=== PATIENT | female | born 1950 | race Caucasian/White ===

== ENCOUNTER 2017-01-20 09:47 | Emergency (ER) | payer MEDICARE, OTHER ==
[2017-01-20] MEDS ORDERED: NS 0.9% 1000 ML* 1,000 ML IV SCH (10:15)
[2017-01-20 10:48] LABS: Hematocrit 33 % (35-47); Hemoglobin 11.1 g/dl (12.0-16.0); Mean Corpuscular HGB Conc 34 g/dl (31-36); Mean Corpuscular Hemoglobin 31 pg (27-31); Mean Corpuscular Volume 93 fL (80-97); Mean Platelet Volume 8 um3 (7.4-10.4); Red Blood Count 3.56 10^6/ul (4.0-5.4); Red Cell Distribution Width 16 % (10.5-15); White Blood Count 1.9 10^3/ul (3.5-10.8)
[2017-01-20] MEDS ORDERED: Ondansetron INJ* 2 MG/ML VIAL IV ONE (10:54)
[2017-01-20] MEDS ORDERED: NS 0.9% 1000 ML* 1,000 ML IV ONE (10:54)
[2017-01-20 11:00] LABS: Albumin 3.4 g/dL (3.2-5.2); BUN/Creatinine Ratio 18.2 (8-20); C Reactive Protein 122.62 mg/L (< 5.00); Calcium 8.7 mg/dL (8.6-10.3); EGFR African American 96.2 (>60); EGFR Non-African American 74.8 (>60); Globulin 2.7 g/dL (2-4); Potassium 3.5 mmol/L (3.5-5.0); Total Bilirubin 0.6 mg/dL (0.2-1.0); Total Protein 6.1 g/dL (6.4-8.9); Troponin I 0.03 ng/mL (<0.04)
[2017-01-20 11:01] LABS: Comments Flag Yes
[2017-01-20 11:02] LABS: Add Diff/Slide Review? Slide Review Added
[2017-01-20] MEDS ORDERED: Iohexol 300* (CONTRAST) 10 ML SDV IV ONE (13:47)
[2017-01-20 14:10] LABS: Urine Bacteria Absent (Absent); Urine Bilirubin Negative (Negative); Urine Glucose Negative (Negative); Urine Nitrite Negative (Negative)
--- NOTE | 2017-01-20 14:28 | RAD ---
INDICATION: Abdominal pain. History of small bowel obstruction. Colostomy. Fallopian tube cancer. COMPARISON: None TECHNIQUE: Axial source images were obtained from the hemidiaphragms to the symphysis pubis following administration of oral and intravenous contrast. 80 mL Omnipaque 300 was utilized. Coronal and sagittal reconstructed images were acquired. Lung bases: The lung bases are clear. Liver: There are numerous water density hepatic lesions measuring up to 3.4 cm. These involve the right and left hepatic lobes. The smaller lesions cannot be fully characterize but are likely cysts or hemangiomas. Suggest correlate with any prior imaging in this patient with a history of fallopian tube carcinoma.. Gallbladder: There are no calcified gallstones. There is no evidence of wall thickening or pericholecystic fluid. Spleen: The spleen is normal in size. There are no masses. Pancreas: There is no focal pancreatic mass or ductal dilatation. Adrenal glands: There is no evidence of adrenal mass. Kidneys: The kidneys are normal in size and position. There are prompt nephrograms and there is prompt excretion bilaterally. There are no renal parenchymal masses. There is no evidence of nephrolithiasis. Adenopathy: There is no evidence of adenopathy by size criteria. Fluid collections: There are no free or localized fluid collections. Vessels:There are no significant atherosclerotic changes involving the aorta. There is no focal aneurysm. The iliac vessels are normal in caliber. The IVC appears normal. GI tract: There is limited oral contrast opacification. The stomach contains oral contrast and there is contrast in ileal loops. There is no contrast within the colon. No specific abnormalities the upper GI tract are seen. There is moderate stool throughout the colon with colonic redundancy. There is a a stoma in the left lower quadrant there are surgical clips at the level the rectum Pelvic organs: There is presumed hysterectomy. There is no adnexal mass. Bladder: There are no bladder masses. Abdominal and pelvic soft tissues: The extraperitoneal abdominal and pelvic soft tissues appear normal.. Osseous structures: There are no acute osseous findings. Other: None IMPRESSION: 1. Numerous low-density hepatic lesions are likely hepatic cysts but this examination should be correlated with prior imaging studies. 2. Stoma left lower quadrant. 3. Moderate stool. No obstruction.
--- NOTE | 2017-01-20 15:00 | ED ---
Alejandra Drake Thomas, scribed for Francisco Cifuentes MD on 01/20/17 at 1024 . Abdominal Pain/Female - HPI Summary HPI Summary: The pt is a 66 y/o F presenting to the ED c/o lower abd pain that began 4 days ago. Her pain spikes to 6/10 from a baseline of 2/10. The pain improved from 3- 4 days ago but worsened yesterday. She additionally c/o nausea, vomiting, and no passage of stool into her colostomy bag. She denies bloody stool. The pt had a chemotherapy appointment 7 days ago. The pt has had multiple SBO in the past. The pt had a SBO in November that was confirmed on CT imaging. She states that in the past her SBO episodes are typically resolved with dietary changes. PSHx: tumor surgery and resection of bowel, colostomy, Port-a-cath. - History of Current Complaint Chief Complaint: EDAbdPain Stated Complaint: ABD PAIN, VOMITING, HY OF CANCER Time Seen by Provider: 01/20/17 10:13 Hx Obtained From: Patient Onset/Duration: Lasting Days - 4 days, Still Present Pain Intensity: 6 Pain Scale Used: 0-10 Numeric Location: Diffuse - lower Aggravating Factor(s): Nothing Alleviating Factor(s): Nothing Associated Signs and Symptoms: Positive: Nausea, Vomiting, Other: - POS: no passage of stool into colostomy bag. Negative: Blood in Stool Allergies/Adverse Reactions: Allergies Allergy/AdvReac Type Severity Reaction Status Date / Time Codeine Allergy Nausea And Verified 01/20/17 13:42 Vomiting Penicillins [PCN] Allergy Rash Verified 01/20/17 13:42 Sulfa Antibiotics Allergy Rash Verified 01/20/17 13:42 PMH/Surg Hx/FS Hx/Imm Hx Previously Healthy: No - Cancer History Cancer Type, Location and Year: [place] - Surgical History Surgery Procedure, Year, and Place: Colostomy, tumor excision and bowel resection, Port-a-cath Infectious Disease History: No Infectious Disease History: Denies: Traveled Outside the [place] in Last 30 Days - Family History Known Family History: Positive: Cardiac Disease, Other - POS: colon CA, CVA - Social History Alcohol Use: Rare Substance Use Type: Reports: None Smoking Status (MU): Former Smoker Review of Systems Constitutional: Negative Negative: Fever Eyes: Negative ENT: Negative Cardiovascular: Negative Respiratory: Negative Positive: Abdominal Pain - onset 4 days ago, Vomiting, Nausea, Other - POS: no passage of stool into colostomy bag; NEG: bloody stool Genitourinary: Negative Musculoskeletal: Negative Skin: Negative Neurological: Negative Psychological: Normal All Other Systems Reviewed And Are Negative: Yes Physical Exam - Summary Physical Exam Summary: Gen: well-appearing, no pain distress Skin: warm, color, dry Head: normal Eyes: EOMI, JENNY ENT: normal Neck: supple, nontender Resp: CTA, breath sounds present Cardio: RRR Abd: soft, diffuse lower abdominal TTP Bowel: hypoactive bowel sound Musc: normal, strength/ROM intact Neuro: normal, sensory/motor intact, A&O x3 Psych: affect/mood appropriate Triage Information Reviewed: Yes Vital Signs On Initial Exam: Initial Vitals Temp Pulse Resp BP Pulse Ox 98.4 F 100 18 102/70 98 01/20/17 09:49 01/20/17 09:49 01/20/17 09:49 01/20/17 09:49 01/20/17 09:49 Vital Signs Reviewed: Yes - [place] Coma Scale Coma Scale Total: 15 Diagnostics - Vital Signs Vital Signs Temp Pulse Resp BP Pulse Ox 01/20/17 10:05 102 113/84 97 01/20/17 10:04 98.4 F 100 16 102/70 99 01/20/17 10:03 104 97 01/20/17 09:49 98.4 F 100 18 102/70 98 - Laboratory Lab Results: Lab Results 01/20/17 01/20/17 01/20/17 Range/Units 10:30 10:30 10:30 WBC 1.9 L (3.5-10.8) 10^3/ul RBC 3.56 L (4.0-5.4) 10^6/ul Hgb 11.1 L (12.0-16.0) g/dl Hct 33 L (35-47) % MCV 93 (80-97) fL MCH 31 (27-31) pg MCHC 34 (31-36) g/dl RDW 16 H (10.5-15) % Plt Count 161 (150-450) 10^3/ul MPV 8 (7.4-10.4) um3 Neut % (Auto) 36.4 L (38-83) % Lymph % (Auto) 45.9 (25-47) % [place] % (Auto) 16.3 H (1-9) % Eos % (Auto) 0.4 (0-6) % Baso % (Auto) 1.0 (0-2) % Absolute Neuts (auto) 0.7 L* (1.5-7.7) 10^3/ul Absolute Lymphs (auto) 0.9 L (1.0-4.8) 10^3/ul Absolute Monos (auto) 0.3 (0-0.8) 10^3/ul Absolute Eos (auto) 0 (0-0.6) 10^3/ul Absolute Basos (auto) 0 (0-0.2) 10^3/ul Absolute Nucleated RBC 0 10^3/ul Nucleated RBC % 0.1 Hem Pathologist Commnt INR (Anticoag Therapy) 1.21 H (0.89-1.11) APTT 30.9 (26.0-36.3) seconds Sodium 133 (133-145) mmol/L Potassium 3.5 (3.5-5.0) mmol/L Chloride 101 (101-111) mmol/L Carbon Dioxide 21 L (22-32) mmol/L Anion Gap 11 (2-11) mmol/L BUN 14 (6-24) mg/dL Creatinine 0.77 (0.51-0.95) mg/dL Est GFR ( Amer) 96.2 (>60) Est GFR (Non-Af Amer) 74.8 (>60) BUN/Creatinine Ratio 18.2 (8-20) Glucose 115 H (70-100) mg/dL Lactic Acid (0.5-2.0) mmol/L Calcium 8.7 (8.6-10.3) mg/dL Total Bilirubin 0.60 (0.2-1.0) mg/dL AST 27 (13-39) U/L ALT 29 (7-52) U/L Alkaline Phosphatase 92 (34-104) U/L Troponin I 0.03 (<0.04) ng/mL C-Reactive Protein 122.62 H (< 5.00) mg/L B-Natriuretic Peptide ( - 100) pg/mL Total Protein 6.1 L (6.4-8.9) g/dL Albumin 3.4 (3.2-5.2) g/dL Globulin 2.7 (2-4) g/dL Albumin/Globulin Ratio 1.3 (1-3) Lipase 57 (11.0-82.0) U/L Urine Color Urine Appearance Urine pH (5-9) Ur Specific [place] (1.010-1.030) Urine Protein (Negative) Urine Ketones (Negative) Urine Blood (Negative) Urine Nitrate (Negative) Urine Bilirubin (Negative) Urine Urobilinogen (Negative) Ur Leukocyte Esterase (Negative) Urine WBC (Auto) (Absent) Urine RBC (Auto) (Absent) Urine Bacteria (Absent) Hyaline Casts (Absent) Urine Glucose (Negative) 01/20/17 01/20/17 01/20/17 Range/Units 10:30 10:30 13:50 WBC (3.5-10.8) 10^3/ul RBC (4.0-5.4) 10^6/ul Hgb (12.0-16.0) g/dl Hct (35-47) % MCV (80-97) fL MCH (27-31) pg MCHC (31-36) g/dl RDW (10.5-15) % Plt Count (150-450) 10^3/ul MPV (7.4-10.4) um3 Neut % (Auto) (38-83) % Lymph % (Auto) (25-47) % [place] % (Auto) (1-9) % Eos % (Auto) (0-6) % Baso % (Auto) (0-2) % Absolute Neuts (auto) (1.5-7.7) 10^3/ul Absolute Lymphs (auto) (1.0-4.8) 10^3/ul Absolute Monos (auto) (0-0.8) 10^3/ul Absolute Eos (auto) (0-0.6) 10^3/ul Absolute Basos (auto) (0-0.2) 10^3/ul Absolute Nucleated RBC 10^3/ul Nucleated RBC % Hem Pathologist Commnt INR (Anticoag Therapy) (0.89-1.11) APTT (26.0-36.3) seconds Sodium (133-145) mmol/L Potassium (3.5-5.0) mmol/L Chloride (101-111) mmol/L Carbon Dioxide (22-32) mmol/L Anion Gap (2-11) mmol/L BUN (6-24) mg/dL Creatinine (0.51-0.95) mg/dL Est GFR ( Amer) (>60) Est GFR (Non-Af Amer) (>60) BUN/Creatinine Ratio (8-20) Glucose (70-100) mg/dL Lactic Acid 0.7 (0.5-2.0) mmol/L Calcium (8.6-10.3) mg/dL Total Bilirubin (0.2-1.0) mg/dL AST (13-39) U/L ALT (7-52) U/L Alkaline Phosphatase (34-104) U/L Troponin I (<0.04) ng/mL C-Reactive Protein (< 5.00) mg/L B-Natriuretic Peptide 72 ( - 100) pg/mL Total Protein (6.4-8.9) g/dL Albumin (3.2-5.2) g/dL Globulin (2-4) g/dL Albumin/Globulin Ratio (1-3) Lipase (11.0-82.0) U/L Urine Color Yellow Urine Appearance Clear Urine pH 5.0 (5-9) Ur Specific [place] 1.016 (1.010-1.030) Urine Protein Negative (Negative) Urine Ketones 1+ H (Negative) Urine Blood 1+ H (Negative) Urine Nitrate Negative (Negative) Urine Bilirubin Negative (Negative) Urine Urobilinogen Negative (Negative) Ur Leukocyte Esterase Trace H (Negative) Urine WBC (Auto) 1+(6-10/hpf) H (Absent) Urine RBC (Auto) 1+(3-5/hpf) H (Absent) Urine Bacteria Absent (Absent) Hyaline Casts Present H (Absent) Urine Glucose Negative (Negative) Result Diagrams: 01/20/17 10:30 01/20/17 10:30 Lab Statement: Any lab studies that have been ordered have been reviewed, and results considered in the medical decision making process. - CT CT Abd/Pel CT Interpretation: Positive (See Comments) - 1. Numerous low-density hepatic lesions are likely hepatic cysts but this examination should be correlated with prior imaging studies. 2. Stoma left lower quadrant. 3. Moderate stool. No obstruction. CT Interpretation Completed By: Radiologist Re-Evaluation - Re-Evaluation First Eval Re-Evaluation Time: 11:49 Change: Unchanged Second Eval Re-Evaluation Time: 14:52 Change: Unchanged Abdominal Pain Fem Course/Dx - Course Course Of Treatment: NO CRITICAL CARE TIME. PATIENT IMPROVED IN ED. STOOL STARTED TO PASS IN ED. PAIN DECREASED. TOLERATED PO LIQUID. DISCHARGE HOME STABLE. - Diagnoses Provider Diagnoses: Abdominal pain Discharge - Discharge Plan Condition: Stable Disposition: HOME Patient Education Materials: Abdominal Pain (ED) Referrals: Non Staff,Doctor [Primary Care Provider] - Additional Instructions: FOLLOW UP WITH . RETURN TO THE EMERGENCY DEPARTMENT FOR ANY WORSENING OF YOUR CONDITION OR QUESTIONS OR CONCERNS. The documentation as recorded by the Alejandra choudhury Thomas accurately reflects the service I personally performed and the decisions made by me, Francisco Cifuentes MD.
[2017-01-20 15:28] VITALS: BP 130/75
== END 2017-01-20 15:30 | disposition home or self-care (01) ==
LOC: ED 09:47
DX: R10.30 Lower abdominal pain, unspecified (principal); R11.2 Nausea with vomiting, unspecified; Z87.891 Personal history of nicotine dependence
CPT/HCPCS: 36415; 74177; 80053; 81003; 81015; 83605; 83690; 83880; 84484; 85025; 85060; 85610; 85730; 86140; 87086; 96374; 99283; J1642; J2405; Q9967

== ENCOUNTER 2017-01-22 19:06 | Inpatient (IN) | payer MEDICARE, OTHER ==
[2017-01-22] MEDS ORDERED: NS 0.9% 1000 ML* 1,000 ML IV ONE (20:38)
[2017-01-22 22:19] LABS: Hematocrit 31 % (35-47); Hemoglobin 10.6 g/dl (12.0-16.0); Mean Corpuscular HGB Conc 34 g/dl (31-36); Mean Corpuscular Hemoglobin 31 pg (27-31); Mean Corpuscular Volume 91 fL (80-97); Mean Platelet Volume 8 um3 (7.4-10.4); Red Blood Count 3.44 10^6/ul (4.0-5.4); Red Cell Distribution Width 16 % (10.5-15); White Blood Count 1.8 10^3/ul (3.5-10.8)
[2017-01-22 22:24] LABS: Comments Flag Yes
[2017-01-22 22:25] LABS: Urine Bacteria Absent (Absent); Urine Bilirubin Negative (Negative); Urine Glucose Negative (Negative); Urine Nitrite Negative (Negative)
--- NOTE | 2017-01-22 22:31 | ED ---
Jimenez Drake Claudia, scribed for Blayne Delgado MD on 01/22/17 at 2036 . Complex/Multi-Sys Presentation - HPI Summary HPI Summary: 66 year old female presents to the ED with chief complaint of NVD. Pt also notes associated Sx of fever and weakness. She states sudden onset of Sx a few days ago. Pt notes 4-5 bouts of diarrhea between yesterday and today and 1 bout of emesis. She also notes fever at her daughters this afternoon. Pt states she has been receiving chemotherapy treatments her last one on January 13. She notes that this Friday will be her 9th out of 12 treatments. Pt notes that the treatment involves folfox. Pt originally thought she had a Bowel Obstruction and came to the ED and received a nml CT. Pt has a PMHX of AZEB and thought the Sx were similar. Account Resolution Expert: Dr. Godfrey- [facility] - History Of Current Complaint Chief Complaint: EDFever Time Seen by Provider: 01/22/17 20:31 Hx Obtained From: Patient Onset/Duration: Sudden Onset, Lasting Days, Still Present Timing: Constant Associated Signs And Symptoms: Positive: Weakness, Nausea, Vomiting, Diarrhea, Other - fever - Allergies/Home Medications Allergies/Adverse Reactions: Allergies Allergy/AdvReac Type Severity Reaction Status Date / Time Codeine Allergy Nausea And Verified 01/20/17 13:42 Vomiting Penicillins [PCN] Allergy Rash Verified 01/20/17 13:42 Sulfa Antibiotics Allergy Rash Verified 01/20/17 13:42 Home Medications: Home Medications Ativan 0.5 MG TAB (*) 0.5 mg PO BEDTIME PRN 01/23/17 [History Confirmed 01/23/17 ] Calcium 1 tab PO DAILY 01/23/17 [History Confirmed 01/23/17] Colace 100 mg PO BID 01/23/17 [History Confirmed 01/23/17] Compazine Tab* 1 dose PO SEE INSTRUCTIONS PRN 01/23/17 [History Confirmed ] Multivitamin 1 dose PO DAILY 01/23/17 [History Confirmed 01/23/17] Omeprazole CAP* 1 dose PO DAILY 01/23/17 [History Confirmed 01/23/17] Zofran 4 MG Odt TAB* 4 mg PO TID PRN 01/23/17 [History Confirmed 01/23/17] ZyrTEC 10 MG TAB* 1 dose PO QAM 01/23/17 [History Confirmed 01/23/17] PMH/Surg Hx/FS Hx/Imm Hx Previously Healthy: Yes - Cancer History Cancer Type, Location and Year: [place] - Surgical History Surgery Procedure, Year, and Place: Colostomy, tumor excision and bowel resection, Port-a-cath Infectious Disease History: Denies: Traveled Outside the [place] in Last 30 Days - Family History Known Family History: Positive: Cardiac Disease, Other - POS: colon CA, CVA - Social History Occupation: Retired Lives: With Family Alcohol Use: Rare Substance Use Type: Reports: None Smoking Status (MU): Former Smoker Review of Systems Positive: Fever Eyes: Negative ENT: Negative Cardiovascular: Negative Respiratory: Negative Positive: Vomiting, Diarrhea, Nausea Genitourinary: Negative Musculoskeletal: Negative Skin: Negative Neurological: Negative Psychological: Normal All Other Systems Reviewed And Are Negative: Yes Physical Exam Triage Information Reviewed: Yes Vital Signs On Initial Exam: Initial Vitals Temp Pulse Resp BP Pulse Ox 99.1 F 109 16 132/77 97 01/22/17 19:32 01/22/17 19:32 01/22/17 19:32 01/22/17 19:32 01/22/17 19:32 Vital Signs Reviewed: Yes Appearance: Positive: Well-Appearing, No Pain Distress Skin: Positive: Warm Eyes: Positive: JENNY ENT: Positive: Hearing grossly normal Neck: Positive: Supple Respiratory/Lung Sounds: Positive: Clear to Auscultation, Breath Sounds Present Cardiovascular: Positive: RRR Abdomen Description: Positive: Nontender, Soft Bowel Sounds: Positive: Present Musculoskeletal: Positive: Strength/ROM Intact Neurological: Positive: Alert, Oriented to Person Place, Time Diagnostics - Vital Signs Vital Signs Temp Pulse Resp BP Pulse Ox 01/22/17 19:32 99.1 F 109 16 132/77 97 - Laboratory Lab Results: Lab Results 01/22/17 Range/Units 22:10 Urine Color Yellow Urine Appearance Cloudy Urine pH 6.0 (5-9) Ur Specific [place] 1.014 (1.010-1.030) Urine Protein 1+(30 mg/dl) H (Negative) Urine Ketones 1+ H (Negative) Urine Blood 2+ H (Negative) Urine Nitrate Negative (Negative) Urine Bilirubin Negative (Negative) Urine Urobilinogen Negative (Negative) Ur Leukocyte Esterase Negative (Negative) Urine WBC (Auto) 1+(6-10/hpf) H (Absent) Urine RBC (Auto) 3+(>10/hpf) H (Absent) Ur Squamous Epith Cells Present H (Absent) Urine Bacteria Absent (Absent) Hyaline Casts Present H (Absent) Urine Glucose Negative (Negative) Result Diagrams: 01/22/17 22:10 01/22/17 22:10 Lab Statement: Any lab studies that have been ordered have been reviewed, and results considered in the medical decision making process. Re-Evaluation - Re-Evaluation First Eval Comment: case d/w h/o at [facility], rec admission, iv abx, case d/w hospitalist Complex Multi-Symp Course/Dx Assessment/Plan: MDM: AFTER LABWORK AND DISCUSSING WITH DR. FUNES- DRILLER HELPER COMPOSITE TECHNICIAN FOR PT DRILLER HELPER DR. GODFREY. PT WILL BE ADMITTED- DR. LIRIANO WILL ADMIT TO [facility]. - Diagnoses Provider Diagnoses: Neutropenia with fever - Physician Notifications Discussed Care Of Patient With: Dr. Funes- retail support associate application architect manager at pt retail support associate. Time Discussed With Above Provider: 23:02 Instructed by Provider To: Admit As Inpatient Discharge - Discharge Plan Condition: Fair Disposition: ADMITTED TO [facility] The documentation as recorded by the Jimenez choudhury Claudia accurately reflects the service I personally performed and the decisions made by me, Blayne Delgado MD.
[2017-01-22 22:32] LABS: Add Diff/Slide Review? Manual Diff Added
[2017-01-22 22:37] LABS: BUN/Creatinine Ratio 13.8 (8-20); C Reactive Protein 158.62 mg/L (< 5.00); Calcium 8.6 mg/dL (8.6-10.3); EGFR African American 116.9 (>60); EGFR Non-African American 90.9 (>60); Globulin 2.8 g/dL (2-4); Magnesium 1.7 mg/dL (1.9-2.7); Potassium 2.8 mmol/L (3.5-5.0); Total Bilirubin 0.5 mg/dL (0.2-1.0); Total Protein 5.8 g/dL (6.4-8.9)
[2017-01-22 22:56] LABS: Immature Granulocytes 10 % (0-9); Metamyelocytes % 1 % (0-2); Neutrophil % 3 % (38-83); Reactive Lymph % 1 % (0-6)
[2017-01-22 22:57] LABS: Polychromasia 1+
[2017-01-22 22:58] LABS: Add Path Review? YES; Tear Drop Cells 1+
--- NOTE | 2017-01-22 23:33 | HP ---
H&P (Free Text) History and Physical: PCP: Mona Orellana of [place], [place] DIRECTOR OF DISTRIBUTION/ONC: Adrian Naranjo MD of [facility] HEM/ONC: Katerin Flores MD of [facility] Date/Time of Evaluation: 01/22/2017 2335 CC: fever HPI: Mrs Augustin is a 66YO female HX ovarian CA (ovarian/fallopian/GI type) on 5FU & oxaliplatin last dose (#8 of 12) given 01/13/2017. She is in the area visiting her daughter when she began feeling progressively fatigued with malaise 1 week ago associated with 3 episodes of N/V then developed increased diarrheal output from her colostomy. She checked her temperature finding it to be 100.2F and presented for evaluation. She denies cough, congestion, SOB, earache, sore throat, headache, open wound, rash, B/U/F of urine, black/bloody emesis/diarrhea, or other acute issue. She has had chronic mild abdominal pain around the site of her colostomy since surgery which her physicians believe is related to adhesions as she has had recurrent SBOs in the past as well. 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 Father passed of bone marrow CA in his 60s. ROS: as above, otherwise reviewed and all were negative Constitutional: NAD, normally developed, well-nourished white female vitals: Vital Signs Temp 36.9 C 01/22/17 22:46 Pulse 88 01/22/17 22:19 Resp 18 01/22/17 22:19 BP 137/67 01/22/17 22:19 Pulse Ox 98 01/22/17 22:19 Intake & Output 01/21/17 01/22/17 01/22/17 23:59 11:59 23:59 Weight 61.235 kg HEENM: atraumatic; sclera/conjunctiva: non-icteric/clear; hearing: clinically intact; oropharynx: clear, mucosa moist Neck: soft tissue: no nuchal rigidity or muscular tenderness; thyroid: non- tender Pulmonary: clear to auscultation bilaterally, good aeration, no accessory muscle use CV: RR/RR, normal S1S2, no carotid bruit, no jugular venous distention, 2+ B DP/ PT, no edema Abdominal: soft, non-distended, trivial david-ostomy discomfort, no rebound/ guarding/rigidity, normoactive bowel sounds, no hepatosplenomegaly or masses, no costovertebral angle tenderness Musculoskeletal: general: grossly intact; gait: stable Integumental: healthy appearing ostomy site with normal appearing loose stool in bag; no rash or notable lesion of exposed skin Psychiatric orientation: AA&O to PPS affect: calm mood: pleasant eye contact: good content: reliable responses: timely insight: good Testing: Lab Results 01/22/17 01/22/17 01/22/17 Range/Units 22:10 22:10 22:10 WBC 1.8 L (3.5-10.8) 10^3/ul RBC 3.44 L (4.0-5.4) 10^6/ul Hgb 10.6 L (12.0-16.0) g/dl Hct 31 L (35-47) % MCV 91 (80-97) fL MCH 31 (27-31) pg MCHC 34 (31-36) g/dl RDW 16 H (10.5-15) % Plt Count 178 (150-450) 10^3/ul MPV 8 (7.4-10.4) um3 Immature Gran % (Auto) 10 H (0-9) % Absolute Neuts (auto) 0.2 L* (1.5-7.7) 10^3/ul Absolute Lymphs (auto) 0.8 L (1.0-4.8) 10^3/ul Absolute Monos (auto) 0.8 (0-0.8) 10^3/ul Absolute Eos (auto) 0 (0-0.6) 10^3/ul Absolute Basos (auto) 0 (0-0.2) 10^3/ul Absolute Nucleated RBC 0.01 10^3/ul Neutrophils % 3 L (38-83) % Band Neutrophils % 9 H (0-8) % Lymphocytes % 53 H (25-47) % Reactive Lymphs % 1 (0-6) % Monocytes % 33 H (0-13) % Metamyelocytes % 1 (0-2) % Normal RBC Morphology Not Reportable Polychromasia 1+ Tear Drop Cells 1+ Elliptocytes 1+ Hem Pathologist Commnt Pending Sodium 130 L (133-145) mmol/L Potassium 2.8 L (3.5-5.0) mmol/L Chloride 97 L (101-111) mmol/L Carbon Dioxide 22 (22-32) mmol/L Anion Gap 11 (2-11) mmol/L BUN 9 (6-24) mg/dL Creatinine 0.65 (0.51-0.95) mg/dL Est GFR ( Amer) 116.9 (>60) Est GFR (Non-Af Amer) 90.9 (>60) BUN/Creatinine Ratio 13.8 (8-20) Glucose 115 H (70-100) mg/dL Lactic Acid (0.5-2.0) mmol/L Calcium 8.6 (8.6-10.3) mg/dL Magnesium 1.7 L (1.9-2.7) mg/dL Total Bilirubin 0.50 (0.2-1.0) mg/dL AST 18 (13-39) U/L ALT 18 (7-52) U/L Alkaline Phosphatase 88 (34-104) U/L C-Reactive Protein 158.62 H (< 5.00) mg/L Total Protein 5.8 L (6.4-8.9) g/dL Albumin 3.0 L (3.2-5.2) g/dL Globulin 2.8 (2-4) g/dL Albumin/Globulin Ratio 1.1 (1-3) Prealbumin Pending Lipase 98 H (11.0-82.0) U/L Urine Color Yellow Urine Appearance Cloudy Urine pH 6.0 (5-9) Ur Specific [place] 1.014 (1.010-1.030) Urine Protein 1+(30 mg/dl) H (Negative) Urine Ketones 1+ H (Negative) Urine Blood 2+ H (Negative) Urine Nitrate Negative (Negative) Urine Bilirubin Negative (Negative) Urine Urobilinogen Negative (Negative) Ur Leukocyte Esterase Negative (Negative) Urine WBC (Auto) 1+(6-10/hpf) H (Absent) Urine RBC (Auto) 3+(>10/hpf) H (Absent) Ur Squamous Epith Cells Present H (Absent) Urine Bacteria Absent (Absent) Hyaline Casts Present H (Absent) Urine Glucose Negative (Negative) 01/22/17 Range/Units 22:10 WBC (3.5-10.8) 10^3/ul RBC (4.0-5.4) 10^6/ul Hgb (12.0-16.0) g/dl Hct (35-47) % MCV (80-97) fL MCH (27-31) pg MCHC (31-36) g/dl RDW (10.5-15) % Plt Count (150-450) 10^3/ul MPV (7.4-10.4) um3 Immature Gran % (Auto) (0-9) % Absolute Neuts (auto) (1.5-7.7) 10^3/ul Absolute Lymphs (auto) (1.0-4.8) 10^3/ul Absolute Monos (auto) (0-0.8) 10^3/ul Absolute Eos (auto) (0-0.6) 10^3/ul Absolute Basos (auto) (0-0.2) 10^3/ul Absolute Nucleated RBC 10^3/ul Neutrophils % (38-83) % Band Neutrophils % (0-8) % Lymphocytes % (25-47) % Reactive Lymphs % (0-6) % Monocytes % (0-13) % Metamyelocytes % (0-2) % Normal RBC Morphology Polychromasia Tear Drop Cells Elliptocytes Hem Pathologist Commnt Sodium (133-145) mmol/L Potassium (3.5-5.0) mmol/L Chloride (101-111) mmol/L Carbon Dioxide (22-32) mmol/L Anion Gap (2-11) mmol/L BUN (6-24) mg/dL Creatinine (0.51-0.95) mg/dL Est GFR ( Amer) (>60) Est GFR (Non-Af Amer) (>60) BUN/Creatinine Ratio (8-20) Glucose (70-100) mg/dL Lactic Acid 0.8 (0.5-2.0) mmol/L Calcium (8.6-10.3) mg/dL Magnesium (1.9-2.7) mg/dL Total Bilirubin (0.2-1.0) mg/dL AST (13-39) U/L ALT (7-52) U/L Alkaline Phosphatase (34-104) U/L C-Reactive Protein (< 5.00) mg/L Total Protein (6.4-8.9) g/dL Albumin (3.2-5.2) g/dL Globulin (2-4) g/dL Albumin/Globulin Ratio (1-3) Prealbumin Lipase (11.0-82.0) U/L Urine Color Urine Appearance Urine pH (5-9) Ur Specific [place] (1.010-1.030) Urine Protein (Negative) Urine Ketones (Negative) Urine Blood (Negative) Urine Nitrate (Negative) Urine Bilirubin (Negative) Urine Urobilinogen (Negative) Ur Leukocyte Esterase (Negative) Urine WBC (Auto) (Absent) Urine RBC (Auto) (Absent) Ur Squamous Epith Cells (Absent) Urine Bacteria (Absent) Hyaline Casts (Absent) Urine Glucose (Negative) CXR, personally reviewed: no acute process, nodule RUL, likely nipple shadow RLL Impression: 66F HX DIAGNOSIS & PLAN Primary neutropenic fever : IV vancomycin, cefepime, & metronidazole : IVFs : blood & urine CXs : neutropenic precautions : obtain records from PCP & oncology : supportive care 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
[2017-01-22] MEDS ORDERED: KCL 20 MEQ/100 ML IVPREMIX* 20 MEQ/100 ML BAG IV ONE (23:45)
[2017-01-22] MEDS ORDERED: Magnesium Sulfate 2 GM IV* 2 GM/50 ML BAG IVPB ONE (23:45)
[2017-01-23] MEDS ORDERED: Cefepime(*) 2 GM in NS 0.9% 50 ML* 50 ML IVPB SCH (00:30)
[2017-01-23] MEDS ORDERED: NS 0.9% 1000 ML* 1,000 ML IV SCH (00:45)
[2017-01-23] MEDS ORDERED: Vancomycin per Pharmacy* NOTE FOLLOW UP PRN (00:49)
[2017-01-23] MEDS: Acetaminophen TAB* 325 MG PO PRN ×3 (02:53→21:15)
[2017-01-23] MEDS: NS 0.9% 1000 ML* 1,000 ML IV SCH ×2 (03:39→21:04)
[2017-01-23] MEDS: metroNIDAZOLE IV 500 MG/100ML* 500 MG/100 ML BAG IVPB SCH ×3 (04:37→19:15)
[2017-01-23] MEDS: Cefepime(*) 2 GM in NS 0.9% 50 ML* 50 ML IVPB SCH ×3 (04:38→21:15)
[2017-01-23] MEDS: Potassium Chlor TAB* 20 MEQ TAB.ER PO SCH ×2 (04:38→07:36)
[2017-01-23] MEDS ORDERED: traMADol TAB* 50 MG PO PRN (05:51)
[2017-01-23] MEDS: Vancomycin(*) 1,000 MG in NS 0.9% 250 ML* 250 ML IVPB ONE ×2 (05:54→05:55)
[2017-01-23] MEDS: Vancomycin(*) 1,000 MG in NS 0.9% 250 ML* 250 ML IVPB SCH ×3 (05:55→22:54)
[2017-01-23 05:57] LABS: Hematocrit 26 % (35-47); Mean Corpuscular HGB Conc 34 g/dl (31-36); Mean Corpuscular Hemoglobin 32 pg (27-31); Mean Corpuscular Volume 92 fL (80-97); Mean Platelet Volume 7 um3 (7.4-10.4); Red Blood Count 2.85 10^6/ul (4.0-5.4); Red Cell Distribution Width 16 % (10.5-15)
[2017-01-23 06:02] LABS: Add Diff/Slide Review? Manual Diff Added; Comments Flag Yes
[2017-01-23 06:16] LABS: BUN/Creatinine Ratio 12.3 (8-20); Calcium 7.8 mg/dL (8.6-10.3); EGFR African American 136.1 (>60); EGFR Non-African American 105.8 (>60); Magnesium 1.6 mg/dL (1.9-2.7); Potassium 3.3 mmol/L (3.5-5.0)
[2017-01-23] MEDS ORDERED: Potassium Chlor TAB* 20 MEQ TAB.ER PO ONE (06:58)
[2017-01-23] MEDS ORDERED: KCL 20 MEQ/100 ML IVPREMIX* 20 MEQ/100 ML BAG IV ONE (06:58)
--- NOTE | 2017-01-23 07:29 | RAD ---
INDICATION: Fever. COMPARISON: There are no prior studies available for comparison. TECHNIQUE: AP and lateral views of the chest were obtained. FINDINGS: The heart is within normal limits in size. Mediastinal and hilar contours appear within normal limits. There is a central venous catheter entering on the right side. The catheter tip projects overlying the region of the superior vena cava approximately at the junction with the right atrium. The lungs are clear. No pleural effusion is present. There are nipple shadows noted at both lung bases. IMPRESSION: NO EVIDENCE FOR ACTIVE CARDIOPULMONARY DISEASE.
[2017-01-23] MEDS ORDERED: Magnesium Sulfate 2 GM IV* 2 GM/50 ML BAG IVPB ONE (07:37)
[2017-01-23] MEDS: Omeprazole CAP* 20 MG PO SCH (07:40)
--- NOTE | 2017-01-23 10:16 | PN ---
Subjective Date of Service: 01/23/17 Interval History: Patient seen and examined at bedside. Denies fever, chills, shortness of breath , chest discomfort, N/V. Pt reports some abdominal discomfort and loose stool in her ostomy. She reports that at baseline she stools are soft to formed. Pt denies any recent sick contacts or family members with GI symptoms. Family History: Unchanged from Admission Social History: Unchanged from Admission Past Medical History: Unchanged from Admission Objective Active Medications: Acetaminophen (Tylenol Tab*) 650 mg PO Q6H PRN Reason: FEVER/PAIN Metronidazole/Sodium Chloride (Flagyl 500 Mg Ivpb*) 500 mg in 100 mls @ 100 mls /hr IVPB Q8H KAT Sodium Chloride (Ns 0.9% 1000 Ml*) 1,000 mls @ 0 mls/hr IV WIDE OPEN KAT Reason : Wide Open Sodium Chloride (Ns 0.9% 1000 Ml*) 1,000 mls @ 125 mls/hr IV PER RATE KAT Vancomycin HCl 1,000 mg/ (Sodium Chloride) 250 mls @ 166.667 mls/hr IVPB Q8HR KAT Cefepime HCl 2 gm/ Sodium (Chloride) 50 mls @ 100 mls/hr IVPB 0400,1200,2000 KAT Lorazepam (Ativan Inj*) 0.5 mg IV BEDTIME PRN Reason: SLEEP Omeprazole (Prilosec Cap*) 20 mg PO DAILY@0600 KAT Ondansetron HCl (Zofran Inj*) 4 mg IV Q6H PRN Reason: NAUSEA Pharmacy Consult (Vancomycin Per Pharmacy*) 1 note FOLLOW UP . PRN Reason: PER PROTOCOL Pharmacy Profile Note (Vancomycin Trough Check) 1 note FOLLOW UP ONCE ONE Stop : 01/24/17 05:31 Tramadol HCl (Ultram*) 50 mg PO Q6H PRN Reason: PAIN Vital Signs 01/23/17 01/23/17 01/23/17 00:00 00:09 00:53 Temperature 98.6 F Pulse Rate 89 92 94 Respiratory 18 Rate Blood Pressure 117/84 124/68 (mmHg) O2 Sat by Pulse 99 100 99 Oximetry 01/23/17 01/23/17 01/23/17 01:00 02:00 02:08 Temperature Pulse Rate 91 91 92 Respiratory Rate Blood Pressure 120/68 129/63 (mmHg) O2 Sat by Pulse 99 98 99 Oximetry 01/23/17 01/23/17 01/23/17 08:00 08:04 08:29 Temperature 98.0 F Pulse Rate 76 Respiratory 18 18 Rate Blood Pressure 126/68 (mmHg) O2 Sat by Pulse 99 97 Oximetry Oxygen Devices in Use Now: None Appearance: NAD, sitting up in bed Eyes: No Scleral Icterus Ears/Nose/Mouth/Throat: Mucous Membranes Moist Respiratory: Symmetrical Chest Expansion and Respiratory Effort, Clear to Auscultation Cardiovascular: NL Sounds; No Murmurs; No JVD, RRR Abdominal: NL Sounds; No Tenderness; No Distention Extremities: No Edema Skin: No Rash or Ulcers Neurological: Alert and Oriented x 3, NL Muscle Strength and Tone Lines/Tubes/Other Access: Clean, Dry and Intact Peripheral IV - site benign Nutrition: Taking PO's Result Diagrams: 01/23/17 05:45 01/23/17 05:45 Additional Lab and Data: Lab Results 01/22/17 Range/Units 22:10 Urine Color Yellow Urine Appearance Cloudy Urine pH 6.0 (5-9) Ur Specific [place] 1.014 (1.010-1.030) Urine Protein 1+(30 mg/dl) H (Negative) Urine Ketones 1+ H (Negative) Urine Blood 2+ H (Negative) Urine Nitrate Negative (Negative) Urine Bilirubin Negative (Negative) Urine Urobilinogen Negative (Negative) Ur Leukocyte Esterase Negative (Negative) Urine WBC (Auto) 1+(6-10/hpf) H (Absent) Urine RBC (Auto) 3+(>10/hpf) H (Absent) Ur Squamous Epith Cells Present H (Absent) Urine Bacteria Absent (Absent) Hyaline Casts Present H (Absent) Urine Glucose Negative (Negative) Assess/Plan/Problems-Billing Assessment: Ms. Augustin is a 66 yo female with PMH significant for ovarian CA on 5FU and oxaliplatin (last dose #8/12 given on 01/13/17) who presented to the emergency room for progressive fatigue and malaise and was found to be neutropenic. - Patient Problems (1) Neutropenic Code(s): D70.9 - NEUTROPENIA, UNSPECIFIED SNOMED Code(s): 159364887 Comment: - Afebrile - Neutropenic precautions - Blood cultures and urine culture pending - Continue IVFs and Cefepime, Vanco, and Metronidazole (2) Electrolyte abnormality Code(s): E87.8 - OTH DISORDERS OF ELECTROLYTE AND FLUID BALANCE, NEC SNOMED Code(s): 197036742 Comment: - Suspect related to diarrhea - Hypokalemia - Will give replacement and check labs in the AM - Hypomagnesia - Will give replacement and check labs in the AM (3) Peripheral neuropathy Code(s): G62.9 - POLYNEUROPATHY, UNSPECIFIED SNOMED Code(s): 747022643 Comment: - Secondary to chemo - No acute issue at this time (4) Chronic abdominal pain Code(s): R10.9 - UNSPECIFIED ABDOMINAL PAIN; G89.29 - OTHER CHRONIC PAIN SNOMED Code(s): 312890868 Comment: - Suspect secondary to adhesions - No acute issue at this time (5) Thyroid nodule Code(s): E04.1 - NONTOXIC SINGLE THYROID NODULE SNOMED Code(s): 829526064 Comment: - Continue outpatient surveillance (6) DVT prophylaxis Code(s): [id number] - SNOMED Code(s): 061388011 Comment: - SQ Heparin (7) Full code status Code(s): Z78.9 - OTHER SPECIFIED HEALTH STATUS SNOMED Code(s): 955978848 Status and Disposition: Inpatient. Discharge to home when medically stable.
[2017-01-23] MEDS: Heparin VIAL(*) 5000 UNITS/ML VIAL (FIVE THOUSAND) SUBCUT SCH ×2 (13:24→22:55)
[2017-01-23] MEDS: Ondansetron INJ* 2 MG/ML VIAL IV PRN (21:22)
[2017-01-23] MEDS: LORazepam INJ* 2 MG/ML 1 ML VIAL IV PRN (22:54)
[2017-01-24] MEDS: metroNIDAZOLE IV 500 MG/100ML* 500 MG/100 ML BAG IVPB SCH ×2 (04:01→11:06)
[2017-01-24] MEDS: Cefepime(*) 2 GM in NS 0.9% 50 ML* 50 ML IVPB SCH ×2 (04:55→12:19)
[2017-01-24] MEDS ORDERED: Vancomycin Trough Check NOTE FOLLOW UP ONE (05:30)
[2017-01-24] MEDS: Omeprazole CAP* 20 MG PO SCH (05:57)
[2017-01-24] MEDS: Heparin VIAL(*) 5000 UNITS/ML VIAL (FIVE THOUSAND) SUBCUT SCH ×3 (05:57→22:19)
[2017-01-24 06:10] LABS: Hematocrit 26 % (35-47); Hemoglobin 8.8 g/dl (12.0-16.0); Mean Corpuscular HGB Conc 34 g/dl (31-36); Mean Corpuscular Hemoglobin 31 pg (27-31); Mean Corpuscular Volume 91 fL (80-97); Mean Platelet Volume 7 um3 (7.4-10.4); Red Blood Count 2.88 10^6/ul (4.0-5.4); Red Cell Distribution Width 17 % (10.5-15)
[2017-01-24 06:11] LABS: Comments Flag Yes
[2017-01-24 06:12] LABS: White Blood Count 2.1 10^3/ul (3.5-10.8)
[2017-01-24 06:29] LABS: BUN/Creatinine Ratio 8.5 (8-20); Calcium 7.6 mg/dL (8.6-10.3); EGFR Non-African American 132.2 (>60); Magnesium 1.9 mg/dL (1.9-2.7); Potassium 2.9 mmol/L (3.5-5.0)
[2017-01-24] MEDS: Vancomycin(*) 1,000 MG in NS 0.9% 250 ML* 250 ML IVPB SCH ×2 (07:39→13:47)
[2017-01-24] MEDS: Potassium Chlor TAB* 20 MEQ TAB.ER PO SCH ×2 (08:26→11:34)
[2017-01-24] MEDS: Ondansetron INJ* 2 MG/ML VIAL IV PRN ×2 (11:33→18:51)
[2017-01-24] MEDS: Acetaminophen TAB* 325 MG PO PRN ×2 (11:34→22:21)
[2017-01-24] MEDS: NS 0.9% 1000 ML* 1,000 ML IV SCH (11:48)
--- NOTE | 2017-01-24 13:46 | PN ---
Subjective Date of Service: 01/24/17 Interval History: Patient seen and examined at bedside. Pt states that she feels well today, but continues to have high output from her ostomy. Denies fever, chills, shortness of breath, chest discomfort, N/V/D. Family History: Unchanged from Admission Social History: Unchanged from Admission Past Medical History: Unchanged from Admission Objective Active Medications: Acetaminophen (Tylenol Tab*) 650 mg PO Q6H PRN Reason: FEVER/PAIN Heparin Sodium (Porcine) (Heparin Vial(*)) 5,000 units SUBCUT Q8HR KAT Metronidazole/Sodium Chloride (Flagyl 500 Mg Ivpb*) 500 mg in 100 mls @ 100 mls /hr IVPB Q8H KAT Sodium Chloride (Ns 0.9% 1000 Ml*) 1,000 mls @ 0 mls/hr IV WIDE OPEN KAT Reason : Wide Open Sodium Chloride (Ns 0.9% 1000 Ml*) 1,000 mls @ 125 mls/hr IV PER RATE KAT Vancomycin HCl 1,000 mg/ (Sodium Chloride) 250 mls @ 166.667 mls/hr IVPB Q8HR KAT Cefepime HCl 2 gm/ Sodium (Chloride) 50 mls @ 100 mls/hr IVPB 0400,1200,2000 KAT Lorazepam (Ativan Inj*) 0.5 mg IV BEDTIME PRN Reason: SLEEP Omeprazole (Prilosec Cap*) 20 mg PO DAILY@0600 KAT Ondansetron HCl (Zofran Inj*) 4 mg IV Q6H PRN Reason: NAUSEA Pharmacy Consult (Vancomycin Per Pharmacy*) 1 note FOLLOW UP . PRN Reason: PER PROTOCOL Tramadol HCl (Ultram*) 50 mg PO Q6H PRN Reason: PAIN Vital Signs 01/23/17 01/23/17 01/23/17 15:54 19:37 20:00 Temperature 97.5 F 97.8 F Pulse Rate 83 81 Respiratory 16 20 18 Rate Blood Pressure 134/69 142/58 (mmHg) O2 Sat by Pulse 100 100 Oximetry 01/23/17 01/23/17 01/23/17 20:38 22:54 23:50 Temperature 98.3 F Pulse Rate 81 Respiratory 16 18 Rate Blood Pressure 124/61 (mmHg) O2 Sat by Pulse 98 99 Oximetry 01/23/17 01/24/17 01/24/17 23:54 04:08 07:51 Temperature 98.0 F 98.1 F Pulse Rate 78 91 Respiratory 16 16 16 Rate Blood Pressure 126/71 115/72 (mmHg) O2 Sat by Pulse 100 99 Oximetry 01/24/17 01/24/17 08:00 12:11 Temperature 98.0 F Pulse Rate Respiratory 18 17 Rate Blood Pressure 128/76 (mmHg) O2 Sat by Pulse 100 Oximetry Oxygen Devices in Use Now: None Appearance: NAD, sitting up in bed Eyes: No Scleral Icterus Ears/Nose/Mouth/Throat: Mucous Membranes Moist Respiratory: Symmetrical Chest Expansion and Respiratory Effort, Clear to Auscultation Cardiovascular: NL Sounds; No Murmurs; No JVD, RRR Abdominal: NL Sounds; No Tenderness; No Distention Extremities: No Edema Skin: No Rash or Ulcers Neurological: Alert and Oriented x 3, NL Muscle Strength and Tone Lines/Tubes/Other Access: Clean, Dry and Intact Peripheral IV - site benign Nutrition: Taking PO's Result Diagrams: 01/24/17 06:00 01/24/17 06:00 Additional Lab and Data: Lab Results 01/22/17 Range/Units 22:10 Urine Color Yellow Urine Appearance Cloudy Urine pH 6.0 (5-9) Ur Specific [place] 1.014 (1.010-1.030) Urine Protein 1+(30 mg/dl) H (Negative) Urine Ketones 1+ H (Negative) Urine Blood 2+ H (Negative) Urine Nitrate Negative (Negative) Urine Bilirubin Negative (Negative) Urine Urobilinogen Negative (Negative) Ur Leukocyte Esterase Negative (Negative) Urine WBC (Auto) 1+(6-10/hpf) H (Absent) Urine RBC (Auto) 3+(>10/hpf) H (Absent) Ur Squamous Epith Cells Present H (Absent) Urine Bacteria Absent (Absent) Hyaline Casts Present H (Absent) Urine Glucose Negative (Negative) Microbiology and Other Data: Microbiology 01/23/17 05:00 Urine Culture - Final Urine 01/23/17 02:09 Aerobic Blood Culture - Preliminary Blood Venous No Growth Day 1 Anaerobic Blood Culture - Preliminary No Growth Day 1 01/23/17 01:20 Aerobic Blood Culture - Preliminary Blood Venous No Growth Day 1 Anaerobic Blood Culture - Preliminary No Growth Day 1 Assess/Plan/Problems-Billing Assessment: Ms. Augustin is a 66 yo female with PMH significant for ovarian CA on 5FU and oxaliplatin (last dose #8/12 given on 01/13/17) who presented to the emergency room for progressive fatigue and malaise and was found to be neutropenic. - Patient Problems (1) Neutropenic Code(s): D70.9 - NEUTROPENIA, UNSPECIFIED SNOMED Code(s): 098859929 Comment: - Afebrile - Neutropenic precautions - Blood cultures, no growth day 1 and urine culture no growth - Continue IVFs and Cefepime, Vanco, and Metronidazole (2) Electrolyte abnormality Code(s): E87.8 - OTH DISORDERS OF ELECTROLYTE AND FLUID BALANCE, NEC SNOMED Code(s): 446149814 Comment: - Suspect related to diarrhea - Hypokalemia - Will give replacement and check labs in the AM - Hypomagnesia - Resolved (3) Peripheral neuropathy Code(s): G62.9 - POLYNEUROPATHY, UNSPECIFIED SNOMED Code(s): 306074195 Comment: - Secondary to chemo - No acute issue at this time (4) Chronic abdominal pain Code(s): R10.9 - UNSPECIFIED ABDOMINAL PAIN; G89.29 - OTHER CHRONIC PAIN SNOMED Code(s): 584097961 Comment: - Suspect secondary to adhesions - No acute issue at this time (5) Thyroid nodule Code(s): E04.1 - NONTOXIC SINGLE THYROID NODULE SNOMED Code(s): 993417392 Comment: - Continue outpatient surveillance (6) DVT prophylaxis Code(s): [id number] - SNOMED Code(s): 141475225 Comment: - SQ Heparin (7) Full code status Code(s): Z78.9 - OTHER SPECIFIED HEALTH STATUS SNOMED Code(s): 111337158 Status and Disposition: Inpatient. Discharge to home when medically stable.
[2017-01-24] MEDS ORDERED: FILGRASTIM-SNDZ* 300 MCG/0.5 ML SYRINGE SUBCUT ONE (16:34)
[2017-01-24] MEDS: NS 0.9% w/ 20 Meq KCL 1000 ML* 1,000 ML IV SCH (17:06)
[2017-01-24] MEDS: Loperamide CAP* 2 MG PO PRN ×2 (17:07→22:22)
[2017-01-24] MEDS: LORazepam INJ* 2 MG/ML 1 ML VIAL IV PRN (22:22)
[2017-01-25] MEDS: NS 0.9% w/ 20 Meq KCL 1000 ML* 1,000 ML IV SCH (03:19)
[2017-01-25] MEDS: Omeprazole CAP* 20 MG PO SCH (05:57)
[2017-01-25] MEDS: Heparin VIAL(*) 5000 UNITS/ML VIAL (FIVE THOUSAND) SUBCUT SCH (05:57)
[2017-01-25 06:49] LABS: Calcium 8.1 mg/dL (8.6-10.3); EGFR African American 158.3 (>60); EGFR Non-African American 123.1 (>60); Potassium 3.8 mmol/L (3.5-5.0)
[2017-01-25 06:57] LABS: Comments Flag Yes; Hematocrit 28 % (35-47); Hemoglobin 9.3 g/dl (12.0-16.0); Mean Corpuscular HGB Conc 34 g/dl (31-36); Mean Corpuscular Hemoglobin 31 pg (27-31); Mean Corpuscular Volume 92 fL (80-97); Mean Platelet Volume 7 um3 (7.4-10.4); Red Blood Count 2.99 10^6/ul (4.0-5.4); Red Cell Distribution Width 17 % (10.5-15); White Blood Count 3.8 10^3/ul (3.5-10.8)
[2017-01-25 06:59] LABS: Add Diff/Slide Review? Manual Diff Added
[2017-01-25] MEDS: Loperamide CAP* 2 MG PO PRN ×2 (08:02→10:52)
[2017-01-25 08:30] LABS: Immature Granulocytes 6 % (0-9); Neutrophil % 42 % (38-83); RBC Morphology Normal (Normal)
[2017-01-25 09:05] VITALS: BP 137/73
[2017-01-25] MEDS: Acetaminophen TAB* 325 MG PO PRN (10:53)
[2017-01-25] MEDS ORDERED: FILGRASTIM-SNDZ* 300 MCG/0.5 ML SYRINGE SUBCUT ONE (11:40)
[2017-01-25] MEDS ORDERED: Diphenoxylat/Atrop 2.5-0.025M* 1 TAB PO PRN (11:40)
--- NOTE | 2017-01-25 11:47 | PN ---
Subjective Date of Service: 01/25/17 Interval History: Patient seen and examined at bedside. Pt states that she feels well. Denies fever, chills, shortness of breath, chest discomfort, N/V/D. Pt reports that she is emptying her ostomy every few hours. Her stool continues to be liquid. She continues to have intermittent upper abdominal discomfort and reports an episode of nausea last night. She states this abdominal discomfort is different then when she has had bowel obstructions in the past. Family History: Unchanged from Admission Social History: Unchanged from Admission Past Medical History: Unchanged from Admission Objective Active Medications: Acetaminophen (Tylenol Tab*) 650 mg PO Q6H PRN Reason: FEVER/PAIN Diphenoxylate HCl/Atropine (Lomotil Tab*) 1 tab PO BID PRN Reason: DIARRHEA Filgrastim (Neupogen(Nf)) 300 mcg SUBCUT ONCE ONE Stop: 01/25/17 11:41 Heparin Sodium (Porcine) (Heparin Vial(*)) 5,000 units SUBCUT Q8HR KAT Heparin Sodium (Porcine) (Heparin Flush Port (Ivad)) 5 ml FLUSH DAILY PRN; Protocol Reason: PER PROTOCOL Potassium Chloride/Sodium Chloride (Ns 0.9% W/ 20 Meq Kcl 1000 Ml*) 1,000 mls @ 100 mls/hr IV PER RATE KAT Lorazepam (Ativan Inj*) 0.5 mg IV BEDTIME PRN Reason: SLEEP Omeprazole (Prilosec Cap*) 20 mg PO DAILY@0600 KAT Ondansetron HCl (Zofran Inj*) 4 mg IV Q6H PRN Reason: NAUSEA Tramadol HCl (Ultram*) 50 mg PO Q6H PRN Reason: PAIN Vital Signs 01/24/17 01/24/17 01/24/17 12:11 15:28 17:07 Temperature 98.0 F 97.9 F Pulse Rate 87 Respiratory 17 16 18 Rate Blood Pressure 128/76 118/79 (mmHg) O2 Sat by Pulse 100 99 Oximetry 01/24/17 01/24/17 01/24/17 19:07 19:15 20:00 Temperature Pulse Rate Respiratory 18 18 Rate Blood Pressure (mmHg) O2 Sat by Pulse 99 Oximetry 01/24/17 01/24/17 01/24/17 20:08 22:22 23:22 Temperature 98.4 F Pulse Rate 88 Respiratory 16 18 16 Rate Blood Pressure 112/67 (mmHg) O2 Sat by Pulse 100 Oximetry 01/25/17 01/25/17 01/25/17 00:20 04:57 07:35 Temperature 98.6 F 97.2 F Pulse Rate 92 92 Respiratory 16 16 Rate Blood Pressure 120/76 114/69 (mmHg) O2 Sat by Pulse 99 99 98 Oximetry 01/25/17 01/25/17 01/25/17 08:00 08:02 08:19 Temperature 97.6 F Pulse Rate 93 Respiratory 16 16 17 Rate Blood Pressure 137/73 (mmHg) O2 Sat by Pulse 98 Oximetry Oxygen Devices in Use Now: None Appearance: NAD, sitting up in bed Eyes: No Scleral Icterus Ears/Nose/Mouth/Throat: Mucous Membranes Moist Respiratory: Symmetrical Chest Expansion and Respiratory Effort, Clear to Auscultation Cardiovascular: NL Sounds; No Murmurs; No JVD, RRR Abdominal: NL Sounds; No Tenderness; No Distention Extremities: No Edema Skin: No Rash or Ulcers Neurological: Alert and Oriented x 3, NL Muscle Strength and Tone Lines/Tubes/Other Access: Clean, Dry and Intact Other Access - Power Port, site benign Nutrition: Taking PO's Result Diagrams: 01/25/17 06:00 01/25/17 06:00 Additional Lab and Data: Lab Results 01/22/17 Range/Units 22:10 Urine Color Yellow Urine Appearance Cloudy Urine pH 6.0 (5-9) Ur Specific [place] 1.014 (1.010-1.030) Urine Protein 1+(30 mg/dl) H (Negative) Urine Ketones 1+ H (Negative) Urine Blood 2+ H (Negative) Urine Nitrate Negative (Negative) Urine Bilirubin Negative (Negative) Urine Urobilinogen Negative (Negative) Ur Leukocyte Esterase Negative (Negative) Urine WBC (Auto) 1+(6-10/hpf) H (Absent) Urine RBC (Auto) 3+(>10/hpf) H (Absent) Ur Squamous Epith Cells Present H (Absent) Urine Bacteria Absent (Absent) Hyaline Casts Present H (Absent) Urine Glucose Negative (Negative) Microbiology and Other Data: Microbiology 01/23/17 05:00 Urine Culture - Final Urine 01/23/17 02:09 Aerobic Blood Culture - Preliminary Blood Venous No Growth Day 1 Anaerobic Blood Culture - Preliminary No Growth Day 1 01/23/17 01:20 Aerobic Blood Culture - Preliminary Blood Venous No Growth Day 1 Anaerobic Blood Culture - Preliminary No Growth Day 1 Assess/Plan/Problems-Billing Assessment: Ms. Augustin is a 66 yo female with PMH significant for ovarian CA on 5FU and oxaliplatin (last dose #8/12 given on 01/13/17) who presented to the emergency room for progressive fatigue and malaise and was found to be neutropenic. - Patient Problems (1) Neutropenic Code(s): D70.9 - NEUTROPENIA, UNSPECIFIED SNOMED Code(s): 303389675 Comment: - Afebrile - Neutropenic precautions - Blood cultures, no growth day 2 and urine culture no growth - ABX stopped (2) Electrolyte abnormality Code(s): E87.8 - OTH DISORDERS OF ELECTROLYTE AND FLUID BALANCE, NEC SNOMED Code(s): 611985012 Comment: - Suspect related to diarrhea - Hypokalemia - Resolved - Hypomagnesia - Resolved (3) Peripheral neuropathy Code(s): G62.9 - POLYNEUROPATHY, UNSPECIFIED SNOMED Code(s): 183645260 Comment: - Secondary to chemo - No acute issue at this time (4) Chronic abdominal pain Code(s): R10.9 - UNSPECIFIED ABDOMINAL PAIN; G89.29 - OTHER CHRONIC PAIN SNOMED Code(s): 161388038 Comment: - Suspect secondary to adhesions - No acute issue at this time (5) Thyroid nodule Code(s): E04.1 - NONTOXIC SINGLE THYROID NODULE SNOMED Code(s): 712876639 Comment: - Continue outpatient surveillance (6) DVT prophylaxis Code(s): [id number] - SNOMED Code(s): 083364644 Comment: - SQ Heparin (7) Full code status Code(s): Z78.9 - OTHER SPECIFIED HEALTH STATUS SNOMED Code(s): 521163727 Status and Disposition: Inpatient. Stable for discharge to home today.
--- NOTE | 2017-01-26 12:36 | DS ---
CC: Dr. Katerin Flores, [facility]; Dr. Denisse Naranjo, [facility]; Dr. Mona Manrique * DISCHARGE SUMMARY: DATE OF ADMISSION: 01/22/17 DATE OF DISCHARGE: 01/25/17 ATTENDING PHYSICIAN: Dr. Beni Carlton* (dictated by Trevon Matamoros NP) PRIMARY CARE PROVIDER: Dr. Mona Manrique. PRIMARY DIAGNOSIS: Neutropenia. SECONDARY DIAGNOSES: 1. Chemo-induced peripheral neuropathy of fingers, toes, taste buds. 2. Stable chronic abdominal pain. 3. Thyroid nodule. 4. Ovarian cancer. STUDIES WHILE IN THE HOSPITAL: Chest x-ray from 01/22/17. Radiologist's impression: No evidence for active cardiopulmonary disease. DISCHARGE MEDICATIONS: Continued home medications: 1. Ativan 0.5 mg oral daily at bedtime as needed for anxiety. 2. Calcium 1 tablet oral daily. 3. Colace 100 mg oral twice daily. 4. Compazine 1 tablet oral as needed. 5. Multivitamin 1 tablet oral daily. 6. Omeprazole 20 mg oral daily. 7. Zofran 4 mg oral 3 times daily as needed for nausea. 8. Zyrtec 10 mg oral daily. HISTORY OF PRESENT ILLNESS/HOSPITAL COURSE: Ms. Augustin is a 66-year-old female with past medical history significant for ovarian cancer, complicated by bowel involvement requiring resection and colostomy, who is currently on 5-FU and oxaliplatin, last dose given on 01/13/17 and was number 8 of 12, who is in the area visiting her daughter from [place] when she progressively felt more fatigued with malaise associated with episodes of nausea and vomiting and developed increased diarrhea output from her colostomy. The patient checked her temperature at home and found it to be 100.2 and decided to present to the emergency room for further evaluation of her symptoms. The patient denied any associated symptoms such as cough, congestion, shortness of breath, earache, sore throat, headaches, open wounds, rash, changes in her urine or any other acute issues. The patient reported chronic mild abdominal pain at the site of her ostomy since her surgery, which was felt to be secondary to adhesions. The patient also has a history of small bowel obstructions, but did not feel that this presentation was similar to past bowel obstructions. While in the emergency room, the patient had a chest x-ray showing no acute findings. She had a urinalysis, was significant for 2+ blood, 1+ wbc's, 3+ rbc' s, and absent bacteria. She was noted to have a white blood cell count of 1.8 in addition to absolute neutrophil count of 0.2. Due to the patient's presentation, hospitalist was asked to evaluate the patient for admission. While in the hospital, the patient remained afebrile. She had initially been started on vancomycin, cefepime, and metronidazole. She received 2 days of antibiotics prior to them being stopped. The patient also received IV hydration during her stay. Her absolute neutrophils increased on her second day of admission to 0.3 on their own. The patient's case was discussed with her oncologist, Dr. Flores, who recommended the patient receive a dose of Neupogen on 01/24/17 and repeat dose prior to discharge. It was discussed that if the patient was able to remain afebrile 24 hours off antibiotics that she could be discharged to home. The patient continued to have liquid stool out of her colostomy. She initially had had a large volume, but that had decreased some down to approximately 300 mL on the day of discharge. The patient remained afebrile again during her stay. Her other vital signs were stable. She did have hypokalemia, hypomagnesium suspected to be secondary to her high osteotomy output. She received electrolyte replacement and this resolved. On the day of discharge, the patient's absolute neutrophil count was up to 1.3, her white blood cell count was 3.8, her H and H have remained stable. Ms. Augustin is stable for discharge to home today. Vital signs are as follows: Temperature 97.6, heart rate 97, respiratory rate 17, O2 sat 98% on room air, blood pressure 137/73. DISCHARGE PLAN: Ms. Augustin will be discharged to home. ACTIVITY: As tolerated. DIET: Regular diet. The patient has been encouraged to make sure that she is taking in enough fluids while she has increased ostomy output. As far as the patient's neutropenia, her ANC improved with a dose of Neupogen and she received a dose of Neupogen prior to discharge. The cause of her diarrhea is unclear, although this could represent a viral gastroenteritis. To date, the patient's stool cultures are pending. They were negative for C. diff. Her blood cultures are negative for growth on day 2 and the patient's urine culture showed no organisms. The patient has been asked to notify Dr. Flores if she develops a fever. The patient should be seen in followup with Dr. Flores in the next week. The patient is scheduled for her next dose of chemotherapy on 01/28/17, and plans to talk to Dr. Flores. The patient then encouraged to avoid any people with cold symptoms. The patient has been asked to return to an emergency room for any chest pain or shortness of breath. This is a summarized report of a complex medical history and hospital stay. For further details, please see the entire medical record. TIME SPENT: Time for this discharge was 50 minutes and greater than half of that was spent with the patient [id number] discussing discharge plans and instructions. CONDITION ON DISCHARGE: Stable. TREVON MATAMOROS NP [id number]/[facility] #: [id number] DICK
== END 2017-01-25 14:45 | disposition home or self-care (01) | DRG 809 ==
LOC: ED 19:06 → MED 23:04
PROVIDERS: ADMIT Hospitalist; ATTEND Internal Medicine
DX: D70.9 Neutropenia, unspecified (principal); C56.9 Malignant neoplasm of unspecified ovary; C78.5 Secondary malignant neoplasm of large intestine and rectum; G62.0 Drug-induced polyneuropathy; T45.1X5A Adverse effect of antineoplastic and immunosuppressive drugs, initial encounter; Y92.9 Unspecified place or not applicable; X58.XXXA Exposure to other specified factors, initial encounter; R10.9 Unspecified abdominal pain; E04.1 Nontoxic single thyroid nodule; Z93.3 Colostomy status; E87.6 Hypokalemia; E83.42 Hypomagnesemia; K66.0 Peritoneal adhesions (postprocedural) (postinfection); Z88.5 Allergy status to narcotic agent; Z88.0 Allergy status to penicillin; Z88.2 Allergy status to sulfonamides; Z82.49 Family history of ischemic heart disease and other diseases of the circulatory system; Z80.8 Family history of malignant neoplasm of other organs or systems
CPT/HCPCS: 36415; 71020; 74177; 80048; 80053; 80202; 81003; 81015; 83605; 83630; 83690; 83735; 83880; 84134; 84484; 85025; 85060; 85610; 85730; 86140; 87040; 87045; 87046; 87077; 87086; 87493; 87899; 96374; 99283; A9270-GY; J0692; J1642; J1644; J2060; J2405; J3370; J3480; Q5101 ZA; Q9967